=== PATIENT | male | born 2000 | race Caucasian/White ===

== ENCOUNTER 2020-07-20 08:47 | Outpatient (NON) | payer OTHER, SELFPAY ==
[2020-07-20 16:39] LABS: SARS-CoV-2 RNA PCR Negative
== END 2020-07-20 08:48 ==
PROVIDERS: PCP Family Medicine; Visit Provider Nurse Practitioner Family
DX: Z20.828 Contact with and (suspected) exposure to other viral communicable diseases (principal); J02.9 Acute pharyngitis, unspecified
CPT/HCPCS: 87635; C9803; U0003

== ENCOUNTER → 2022-12-12 10:25 | Outpatient (CLI) | payer OTHER, SELFPAY ==
--- NOTE | ~2022-12-12 | XR_ITS ---
EXAMINATION: XR scoliosis survey DATE: 12/12/2022 11:37 INDICATION: Personal history of other diseases of the musculoskeletal system. TECHNIQUE: Anteroposterior and lateral views of the entire spine standing were obtained. COMPARISON: Radiographs 06/26/2010 FINDINGS: There is no limb length discrepancy. There are 12 pairs of ribs. There are 5 nonrib-bearing lumbar segments. There is 22 degrees dextroscoliosis from T6 to T11 by the Olmos method. There is 13 degrees levoscoliosis from T11 to L4. IMPRESSION: 1. Scoliosis. Reviewed, dictated and finalized at location A. [employer] IMPRESSION: 1. Scoliosis.
== END ==
PROVIDERS: PCP Family Medicine; Visit Provider Physician Assistant
DX: M41.9 Scoliosis, unspecified (principal)
CPT/HCPCS: 72082

== ENCOUNTER 2023-03-14 17:26 | Emergency (ER) | payer OTHER, SELFPAY ==
[2023-03-14 17:42] VITALS: BP 126/78; PULSE 98; RESP 16; TEMP 37.6; O2SAT 99
[2023-03-14 17:43] VITALS: BP 126/78; PULSE 98; RESP 16; TEMP 37.6; O2SAT 99
--- NOTE | 2023-03-14 18:00 | ED.WOUNDLAC ---
HPI - Wound/Laceration General Chief Complaint: Extremity Injury, Upper Stated Complaint: Right Hand Pain Time Seen by Provider: 03/14/23 18:10 Source: patient and RN notes reviewed Mode of arrival: ambulatory Limitations: no limitations History of Present Illness HPI narrative: 22-year-old male presents with concern for laceration to the 2nd digit of his right hand on the dorsal aspect. Reports he cut it on a piece of plastic at work today. He reports he is up-to-date on his vaccinations. He denies decreased strength, sensation range of motion of the digit. Related Data Allergies Allergy/AdvReac Type Severity Reaction Status Date / Time No Known Allergies Allergy Verified 03/14/23 17:43 Review of Systems Review of Systems: CONSTITUTIONAL: Denies malaise, chills, sweats, or fever. SKIN: Reports laceration to the 2nd digit of the right hand MUSCULOSKELETAL: Denies muscle skeletal pain NEUROLOGIC: Denies numbness, weakness All systems reviewed & are unremarkable except as noted in HPI and below PMFSH Social History Social History Smoking status: Never smoker Second hand tobacco smoke exposure: No Alcohol intake: never Substance use: never Substance use type: does not use Living arrangements: with friend(s) Occupation/Education: occupation Gender identity (if verbalized by the patient): Male Comments At time of signature, agree with nursing past medical, surgical, social and family history. There is no relevant family history pertinent to the presenting complaint Exam Narrative: GENERAL: Well-appearing, well-nourished, and in no acute distress. HEAD: Normocephalic EYES: PERRLA, conjunctivae clear NECK: Supple. CHEST: Speaks in full sentences. No respiratory distress. HEART: Regular rate and rhythm. Normal and equal peripheral pulses. EXTREMITIES: 2nd digit of the right hand has normal strength and sensation. 5/5 strength with digit flexion, extension. Range of motion normal. No clubbing, cyanosis, or edema noted. No muscle skeletal tenderness. Normal digital cascade with flexion of fingers, median, ulnar and radial nerve intact. Normal sensation of each side of finger. Can perform 'okay' sign, 'cross over finger test of index and middle fingers' and 'thumbs up' sign. No scissoring. Normal thumb opposition. Good capillary refill and radial pulse. Distal capillary refill less than 3 seconds. SKIN: Warn, dry, intact, pink. Approximately 0.5 cm curved laceration noted just above the DIP joint of the 2nd digit of the dorsal aspect of the right hand very superficial, well-approximated NEURO: Alert and oriented x3. PSYCH: Normal mood and affect Course Course Emergency Course: Patient is aware of diagnosis, understands and agrees to treatment plan. Anticipatory guidance given. Patient agrees to follow-up as directed and is aware of reasons to seek care at the emergency department. Portions of this record may have been created with voice recognition software Level of Care: Express Care Visit Vital Signs Vital signs: Vital Signs Temperature 99.6 F 03/14/23 17:42 Pulse Rate 98 03/14/23 17:42 Respiratory Rate 16 03/14/23 17:42 Blood Pressure 126/78 03/14/23 17:42 Pulse Oximetry 99 03/14/23 17:42 Oxygen Delivery Room Air 03/14/23 17:42 Temperature 99.6 F 03/14/23 17:43 Pulse Rate 98 03/14/23 17:43 Respiratory Rate 16 03/14/23 17:43 Blood Pressure 126/78 03/14/23 17:43 Pulse Oximetry 99 03/14/23 17:43 Oxygen Delivery Room Air 03/14/23 17:43 Reviewed. Procedures Laceration Laceration 1: Date: 03/14/23 Time: 18:18 Site: hand Side (If applicable): right Size (cm): 0.5 Description: irregular Depth: simple, single layer Pre-repair: irrigated ====== Skin Level ====== Skin layer closed with: dermabond ====== Subcutaneous Layer
== END 2023-03-14 18:38 | disposition home or self-care (01) ==
PROVIDERS: Emergency Provider Nurse Practitioner; PCP Family Medicine
DX: S61.210A Laceration without foreign body of right index finger without damage to nail, initial encounter (principal); W45.8XXA Other foreign body or object entering through skin, initial encounter
CPT/HCPCS: 12001; 99212; G0463